=== PATIENT | male | born 1930 | race Caucasian/White ===

== ENCOUNTER 2018-08-06 15:39 | Emergency (ER) | payer MEDICARE, BC ==
[~2018-08-06] VITALS: Ht 182.9 cm; Wt 75.0 kg
[~2018-08-06 15:39] MED LIST: CENTRUM SILVER1 TA2 PO; FISH OIL 1,0001 CA1 PO; NIASPAN500 MG PO; PLAVIX75 MG PO; TOPROL XL25 MG
[2018-08-06 15:48] VITALS: Ht 182.9 cm; Wt 75.0 kg
[2018-08-06 17:03] LABS: BASOPHILS 0.3 % (0-2); EOSINOPHILS 2.2 % (0-7); HEMATOCRIT 39.6 % (42.0-54.0); HEMOGLOBIN 13.5 g/dL (13.5-17.5); IMMATURE GRANULOCYTES 0.3 % (0-5); MCH 32.5 pg (26.0-34.0); MCHC 34.1 g/dL (31.0-37.0); MCV 95.4 fL (80.0-100.0); MEAN PLATELET VOLUME 11.3 fL (7.4-10.4); MONOCYTES 9.4 % (2-11); NEUTROPHILS 65.8 % (40-80); PLATELET COUNT 148 10x3/uL (130-400); RBC 4.15 10x6/uL (4.20-6.10); RDW 12.7 % (11.5-14.5); WBC 8.6 10x3/uL (4.8-10.8)
[2018-08-06 17:22] LABS: ALBUMIN 3.8 g/dL (3.4-5.0); ALKALINE PHOSPHATASE 82 U/L (46-116); ALT (SGPT) 49 U/L (10-68); BILIRUBIN - TOTAL 0.27 mg/dL (0.2-1.3); CALC OSMOLALITY 285 mosm/kg (275-300); CALCIUM 8.9 mg/dL (8.5-10.1); CARBON DIOXIDE 28.5 mmol/L (21.0-32.0); CHLORIDE - SERUM 105 mmol/L (98-107); CREATININE - SERUM 1.4 mg/dL (0.6-1.3); GLUCOSE 161 mg/dL (74-106); POTASSIUM - SERUM 3.8 mmol/L (3.5-5.1); PROTEIN - SERUM 7.6 g/dL (6.4-8.2); SODIUM 141 mmol/L (136-145); UREA NITROGEN 17 mg/dL (7-18); eGFR NON AFRICAN AMERICAN 51 mL/min (90-120)
[2018-08-06 17:32] LABS: CKMB 2.3 U/L (0.0-3.6); CREATINE KINASE 105 UL (21-232)
[2018-08-06 17:34] LABS: TROPONIN-I < 0.017 ng/mL (0.000-0.060)
[2018-08-06] MEDS ORDERED: ROBAXIN500 MG PO (17:42)
[2018-08-06 18:08] VITALS: BP 138/73
== END 2018-08-06 18:09 | disposition home or self-care (01) ==
LOC: D.ER 15:39
PROVIDERS: Family Medicine
DX: S20.219A Contusion of unspecified front wall of thorax, initial encounter (principal); V43.52XA Car driver injured in collision with other type car in traffic accident, initial encounter; Y93.89 Activity, other specified; Y92.410 Unspecified street and highway as the place of occurrence of the external cause; S29.012A Strain of muscle and tendon of back wall of thorax, initial encounter; S61.412A Laceration without foreign body of left hand, initial encounter; E11.9 Type 2 diabetes mellitus without complications; I25.10 Atherosclerotic heart disease of native coronary artery without angina pectoris; R00.1 Bradycardia, unspecified

== ENCOUNTER → 2019-03-24 09:06 | Outpatient (CLI) | payer MEDICARE, BC ==
[2018-08-06 15:48] VITALS: BMI 22.4
[~2019-03-24 09:06] MED LIST changes: +ROBAXIN500 MG PO
--- NOTE | 2019-03-25 10:00 | ST ---
PATIENT:RICCO MORENO MEDICAL RECORD: [id number] SEX: M LOCATION:[facility] [place] ORDER #: ADMISSION DATE: 03/24/19 AGE OF PATIENT: 88 REFERRING PHYSICIAN: INTERPRETING PHYSICIAN: HEIDY JARVIS MD DATE OF SERVICE: 03/24/2019 Nuclear Stress Test INDICATION: Angina and coronary artery disease and hypertension. He was exercised on standard Lexiscan protocol with 32 mCi of sestamibi injected at peak stress, 11 mCi used previously for rest images. FINDINGS: Gated SPECT reveals preserved ejection fraction at 70% with good wall motioning and thickening and brightening throughout all segments. SPECT imaging Cardiolite was used for myocardial perfusion agent. There is reversibility throughout the inferior and apical segments. This includes the basal, mid apical inferior segments as well as the apex itself. The degree of reversibility is mild to moderate. The amount of myocardium involved is mild to moderate. OVERALL IMPRESSION: 1. This is a low to intermediate risk stress test with reversibility throughout the inferior and apical segments. 2. Gated SPECT reveals preserved ejection fraction at 70% in this patient with ongoing symptomatology. The current scan does suggest the presence with significant coronary artery disease. We would maximize medical therapy. If symptomatology continues, we would proceed with coronary angiography. TRANSINT:[id number] Voice Confirmation ID: [id number] DOCUMENT ID: [id number] HEIDY JARVIS MD at 1000 CC: [id number] DICTATION DATE: 03/24/19 1607 GYNECOLOGIST: 03/25/19 0749 [facility] [place] CLI 03/24/19 [place] [id number]
== END | disposition home or self-care (01) ==
LOC: D.HCCARDIO 09:06
PROVIDERS: ATTEND Internal Medicine Interventional Cardiology
DX: I25.10 Atherosclerotic heart disease of native coronary artery without angina pectoris (principal)

== ENCOUNTER 2019-06-05 09:31 | Outpatient (CLI) | payer MEDICARE, BC ==
[~2019-06-05] VITALS: Ht 182.9 cm; Wt 72.3 kg
--- NOTE | ~2019-06-05 | HEMODYNAMI ---
PATIENT:RICCO MORENO MEDICAL RECORD: [id number] : 32 LOCATION:LEO ADMISSION DATE: 06/05/19 Generatedon:06/05/201913:55 Patient name: RICCO MORENO Patient #: [id number] SSN: [id number] : 1930 Date of study: 06/05/2019 Page: Of Hemodynamic Procedure Report Patient Data Patient Demographics Procedure consent was obtained First Name: RICCO Gender: Male Last Name: TIFFANIE : 1930 [facility] Initial: CHARITY Age: 88 year(s) Patient #: [id number] Race: SSN: [id number] Additional ID: [id number] Contact details Address: [address] [place] [address] [place] State: [place] City: [place] Zip code: [address] Past Medical History Allergies: No known allergies Admission Admission Data Admission Date: 06/05/2019 Admission Time: 9:31 Weight (lbs.): 158.73 Weight (kg.): 72 Lab Results Lab Result Date: 06/05/2019 Lab Result Time: 0:00 Biochemistry Name Units Result Min Max BUN mg/dl 12 --(-*--)-- 7 18 Creatinine mg/dl 1.3 --(---*)-- 0.6 1.3 CBC Name Units Result Min Max Hematocrit % 39.3 -*(----)-- 42 54 Hemoglobin g/dl 13.6 --(*---)-- 13.5 17.5 Procedure Procedure Types Cath Procedure Diagnostic Procedure LHC LHC w/Coronaries Sedation Charges Moderate Sedation up to 15 minutes PCI Procedure Coronary Stent Coronary Stent Initial Procedure Description Procedure Date Procedure Date: 06/05/2019 Procedure Start Time: 13:33 Procedure End Time: 13:54 Procedure Staff Name Function Theron Quinones MD Performing Physician Norma Saavedra RT Monitor Chiquita Donahue RT Scrub Andrey Fam RN Nurse Jeanine Mcdonough RN Film Flat Inspectorfrancisco javier Dempsey RT Monitor Procedure Data Cath Procedure Fluoroscopy Diagnostic fluoroscopy Total fluoroscopy Time: 3.2 time: 3.2 min min Diagnostic fluoroscopy Total fluoroscopy dose: 371 dose: 371 mGy mGy Contrast Material Contrast Material Type Amount (ml) Isovue 300 88 Entry Location Entry Primary Successful Side Size Upsize Upsize Entry Closure Succes sful Closure Location (Fr) 1 (Fr) 2 (Fr) Remarks Device Remarks Femoral Right 5 Fr 6 Fr Exoseal artery Short Estimated blood loss: 10 ml Diagnostic catheters Device Type Used For End Catheter Placement MULTIPACK Pigtail 5 Fr Procedure catheter MULTIPACK JL 4.0 5Fr Procedure catheter MULTIPACK 3DRC 5Fr Procedure catheter Procedure Complications No complications Procedure Medications Medication Administration Route Dosage Oxygen etCO2 Nasal cannula 2 l/min Lidocaine 2% added to field 20 Heparin Flush Bag added to field 2 bags (1000units/500ml NS) 0.9% NaCl I.V. 100 ml/hr Radial Cocktail I.A. 1 syringe (Verapamil 2mg/Nitro 400mcg/Heparin 1500units) Versed I.V. 1 mg Fentanyl I.V. 50 mcg Versed I.V. 1 mg Fentanyl I.V. 50 mcg Heparin Bolus I.V. 4000 units Integrilin (Bolus I.V. 6.8 ml 2mg/ml) Plavix P.O. 600 mg Hemodynamics Rest HGB: 13.6 (g/dl) Heart Rate: 60 (bpm) Snapshots Pre Cath Intra NCS Post Cath Vital Signs Time Heart Resp SPO2 etCO2 NIBP (mmHg) Rhythm Pain Sedation Rate (ipm) (%) (mmHg) Status Level (bpm) 13:01:03 61 16 100 34.5 145/72(120) NSR 0 (11) 10(A) , No pain 13:05:25 60 10 100 22.5 145/68(123) NSR 0 (11) 10(A) , No pain 13:09:47 57 14 100 35.9 155/70(124) NSR 0 (11) 10(A) , No pain 13:14:05 56 15 97 0 130/63(105) NSR 0 (11) 10(A) , No pain 13:18:23 60 16 99 0 125/62(104) NSR 0 (11) 10(A) , No pain 13:22:37 60 13 100 15.7 139/68(113) NSR 0 (11) 10(A) , No pain 13:26:57 56 14 100 0 118/60(96) NSR 0 (11) 10(A) , No pain 13:31:11 56 14 100 0 120/58(96) NSR 0 (11) 10(A) , No pain 13:35:23 87 15 100 0 134/65(98) NSR 0 (11) 9(A) , No pain 13:39:43 64 14 99 0 119/57(90) NSR 0 (11) 9(A) , No pain 13:43:59 66 13 100 0 112/55(87) NSR 0 (11) 9(A) , No pain 13:48:13 61 14 100 0 118/52(97) NSR 0 (11) 10(A) , No pain 13:52:27 64 13 100 0 120/60(91) NSR 0 (11) 10(A) , No pain Medications Time Medication Route Dose Verified Delivered Reason Not es Effectiveness by by 12:49:19 Oxygen etCO2 2 l/min Theron Buffie used for Nasal Stacie Fam RN procedure cannula 12:49:26 Lidocaine 2% added 20ml Theron Buffie used for to vial Stacie Fam RN procedure field 12:49:33 Heparin Flush added 2 bags Theron Buffie used for Bag to Stacie Fam RN procedure (1000units/500ml field NS) 12:49:42 0.9% NaCl I.V. 100 Theron Buffie Per physician ml/hr Stacie Fam RN 13:14:13 Radial Cocktail I.A. 1 Theron Crump for (Verapamil syringe Stacie Quinones MD vasodilation 2mg/Nitro 400mcg/Heparin 1500units) 13:30:14 Versed I.V. 1 mg Theron Buffie for sedation Stacie Fam RN 13:30:20 Fentanyl I.V. 50 mcg Theron Buffie for sedation Stacie Fam RN 13:35:42 Versed I.V. 1 mg Theron Buffie for sedation Stacie Fam RN 13:35:49 Fentanyl I.V. 50 mcg Theron Balderas for sedation Stacie Fam RN 13:40:20 Heparin Bolus I.V. 4000 Theron Buffie for katherine ified units Stacie Fam RN anticoagulation with dr quinones 13:41:00 Integrilin I.V. 6.8 ml Theron duggan Was maria fernanda (Bolus 2mg/ml) Stacie Fam RN antiplatelet 3.2 ml therapy of vial 13:48:57 Plavix P.O. 600 mg Theron Fam RN antiplatelet therapy Procedure Log Time Note 12:34:32 Patient Weight : 158.73 lbs 12:38:49 Informed consent obtained and on chart 12:43:42 Jeanine Mcdonough RN sent for patient. Start room use. 12:44:07 Procedure Status Elective Heart Cath (OP). 12:44:11 Time tracking: Regular hours (M-F 7:00 - 5:00) 12:44:22 Plan of Care:Hemodynamics will remain stable., Cardiac rhythm will remain stable., Comfort level will be maintained., Respiratory function will remain adequate., Patient/ family verbilizes understanding of procedure., Procedure tolerated without complication., Recovers from procedure without complications.. 12:44:55 H&P Date Dictated: 06/02/2019 Within 30 days and on chart., H&P Addendum completed by physician on day of procedure. (MUST COMPLETE FOR ALL OUTPATIENTS). 12:45:30 Patient allergic to No known allergies 12:46:55 Lab Result : BUN 12 mg/dl 12:46:55 Lab Result : Creatinine 1.3 mg/dl 12:46:55 Lab Result : Hemoglobin 13.6 g/dl 12:46:55 Lab Result : Hematocrit 39.3 % 12:49:19 Oxygen 2 l/min etCO2 Nasal cannula was administered by Andrey Fam RN; used for procedure; 12:49:26 Lidocaine 2% 20ml vial added to field was administered by Andrey Fam RN; used for procedure; 12:49:33 Heparin Flush Bag (1000units/500ml NS) 2 bags added to field was administered by Andrey Fam RN; used for procedure; 12:49:42 0.9% NaCl 100 ml/hr I.V. was administered by Andrey Fam RN; Per physician; 12:51:49 Patient received from Pre/Post Procedure Room to CCL 1 Alert and oriented. Tansferred to table in Supine position. 12:51:50 Warm blankets applied, and renetta hugger turned on for patient comfort. 12:51:50 Correct patient and procedure confirmed by team. 12:51:51 ECG and BP/O2 sat monitors applied to patient. 12:59:49 Vital chart was started 12:59:53 Baseline sample Acquired. 12:59:59 Full Disclosure recording started 13:00:20 Rhythm: sinus rhythm 13:00:31 Pre-procedure instructions explained to patient. 13:00:32 Pre-op teaching completed and patient verbalized understanding. 13:00:36 Family in waiting room. 13:00:41 Patient NPO since Midnight. 13:01:27 Is the patient allergic to Iodine/contrast media? No. 13:01:38 Is patient on blood thinner?No 13:01:49 Patient diabetic? Yes. 13:01:56 If diabetic: On Metformin? No 13:02:05 Previous problem with sedation/anesthesia? No ? 13:02:16 Snore? No 13:02:20 Sleep apnea? No 13:02:23 Deviated septum? No 13:02:26 Opens mouth fully? Yes 13:02:29 Sticks out tongue? Yes 13:02:55 Airway obstruction? 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 Yes tight 13:03:19 Modified Samuel's test Ulnar < 7 seconds 13:03:41 Patient pain scale 0/10 ?. 13:03:51 IV patent on arrival in left hand with 0.9% NaCl at [facility]. 13:04:13 Lab results completed and on chart. 13:04:25 Right Radial & Right Groin area was prepped with chlora-prep and draped in sterile fashion 13:04:27 Alarms reviewed by R. N. 13:04:28 Sharps counted by scrub and verified by R.N. 13:07:02 Use device set Radial Dx or PCI 13:07:08 ACIST Syringe (29515) opened to sterile field. 13:07:12 Medline Cath Pack ([id number]) opened to sterile field. 13:07:13 Bag Decanter () opened to sterile field. 13:07:17 ACIST Hand Control (94501) opened to sterile field. 13:07:17 ACIST Manifold (60063) opened to sterile field. 13:07:18 Tegaderm 4 x 4 (1626W) opened to sterile field. 13:07:45 MBrace Wrist Support ([id number]) opened to sterile field. 13:07:48 EMERALD Guide Wire (384-649) opened to sterile field. 13:07:50 SHEATH 6FR RAIN (0419450) opened to sterile field. 13:14:13 Radial Cocktail (Verapamil 2mg/Nitro 400mcg/Heparin 1500units) 1 syringe I.A. was administered by Theron Quinones MD; for vasodilation; 13:18:24 Zero performed for pressure channel P1 13:29:32 Physician arrived 13:29:33 --------ALL STOP TIME OUT------ 13:29:34 Final Timeout: patient, procedure, and site verified with staff and physician. All members of the team are in agreement. 13:29:41 Right Radial & Right Groin site verified by team. 13:29:48 Fire Safety Assessment: A--An alcohol-based skin anteseptic being used preoperatively., C--Open oxygen or nitrous oxide is being used., D--An ESU, laser, or fiber-optic light is being used. 13:29:57 Physical assessment completed. ASA score P 3 - A patient with severe systemic disease as per Theron Quinones MD. 13:30:14 Versed 1 mg I.V. was administered by Andrey Fam RN; for sedation; 13:30:20 Fentanyl 50 mcg I.V. 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 13:30:49 Maximum allowable contrast dose (3.7 X eGFR X 0.75)153 ml. 13:30:56 Sedation plan: IV Moderate Sedation Medication:Versed, Fentanyl 13:33:04 Procedure started. 13:33:13 Local anesthetic to right radial artery with Lidocaine 2% by Theron Quinones MD.INITIAL ACCESS ONLY 13:34:07 unable to use radial. procede with rt groin. 13:34:15 Local anesthetic to right femoral artery with Lidocaine 2% by Theron Quinones MD.ADDITIONAL ACCESS 13:34:31 Use device set Multipack Set 13:34:42 DIAGNOSTIC Multipack 5Fr catheter set ([id number]) opened to sterile field. 13:35:12 SHEATH 5FR [place] (JXD186) opened to sterile field. 13:35:33 A 5 Fr sheath was inserted into the Right Femoral artery 13:35:42 Versed 1 mg I.V. was administered by Andrey Fam RN; for sedation; 13:35:49 Fentanyl 50 mcg I.V. was administered by Andrey Fam RN; for sedation; 13:35:52 A MULTIPACK Pigtail 5 Fr catheter was advanced over the wire and used for Procedure. 13:36:00 LV gram done using RAIN 13:36:11 Injector settings: Ml/sec: 10/20, Volume: 20, 13:36:22 EF : 55 % 13:36:25 Catheter removed. 13:36:37 A MULTIPACK JL 4.0 5Fr catheter was advanced over the wire and used for Procedure. 13:36:49 LCA angiography performed. 13:37:38 Catheter removed. 13:37:51 A MULTIPACK 3DRC 5Fr catheter was advanced over the wire and used for Procedure. 13:38:39 RCA angiography performed. 13:38:54 Catheter removed. 13:39:24 CHOICE PT Extra Support 182cm wire ([id number]) opened to sterile field. 13:39:25 INFLATOR Merit BasixCompak (DX1715) opened to sterile field. 13:39:28 SHEATH 6FR [place] (UPL903) opened to sterile field. 13:39:51 Sheath upsized to a 6 Fr Short. 13:40:13 GUIDE 6FR XBLAD 3.5 catheter ([id number]) opened to sterile field. 13:40:20 Heparin Bolus 4000 units I.V. was administered by Andrey Fam RN; for anticoagulation; verified with dr quinones 13:40:46 6 Fr xblad 3.5 guide catheter was inserted over the wire 13:41:00 Integrilin (Bolus 2mg/ml) 6.8 ml I.V. was administered by Andrey Fam RN; for antiplatelet therapy; Wasted 3.2 ml of vial 13:41:43 choice es 182 wire advanced. 13:41:46 Wire advanced across lesion. 13:42:56 Pre PCI Site: [place] Diag1 has 90% stenosis. 13:43:03 Inflate balloon Inflation number: 1 A EUPHORA 2.5 x 10 Balloon ([id number]) was prepped and advanced across the 1st Diag , then inflated to 13 MARIPOSA for 0:00 (min:sec) . 13:43:17 Balloon removed over the wire. 13:45:11 Place stent Inflation Number: 2 A COBRA RX 2.5 X 8 Stent was prepped and advanced across the 1st Diag . The stent was deployed at 13 MARIPOSA for 0:00 (min:sec) . 13:45:12 Post PCI Site: [place] Diag1 has 0% stenosis. 13:45:33 Stent catheter was removed intact over wire. 13:45:36 Wire removed. 13:45:38 Guide catheter removed. 13:46:02 EXOSEAL 6Fr (EX600) opened to sterile field. 13:46:27 Sheath removed intact; hemostasis achieved with Exoseal to the Right Femoral artery. 13:46:32 Procedure ended.(Physican Out) 13:47:25 Fluoroscopy time 03.20 minutes. 13:47:31 Fluoroscopy dose: 371 mGy 13:47:31 Flurop Dose total: 371 13:47:39 Dose Area Product 74331 mGy/cm. 13:47:50 Contrast amount:Isovue 300 88ml. 13:47:59 Maximum allowable dose exceeded? No. 13:48:01 Sharps counted by scrub and verified by R.N. 13:48:13 Post-op/insertion site Right Femoral artery dressed using a 4 x 4 and Tegaderm. 13:48:20 Post right femoral artery:stable 13:48:38 Post-procedure physical assessment completed. ASA score P 3 - A patient with severe systemic disease as per Theron Quinones MD. 13:48:47 Post procedure rhythm: unchanged. 13:48:54 Estimated blood loss: 10 ml 13:48:57 Plavix 600 mg P.O. was administered by Andrey Fam RN; for antiplatelet therapy; 13:48:59 Post procedure instruction explained to patient.Patient verbalizes understanding. 13:49:00 Patient needs reinforcement of post procedure teaching. 13:50:11 Procedure type changed to Cath procedure, Diagnostic procedure, LHC, LHC w/Coronaries, Sedation Charges, Moderate Sedation up to 15 minutes, PCI procedure, Coronary Stent, Coronary Stent Initial 13:52:09 ACT drawn and resulted at 271 seconds. (normal therapeutic range 180-240 seconds). 13:52:24 Procedure and supply charges have been captured, reviewed, submitted and are correct. 13:52:47 Procedure Complication : No complications 13:54:36 Vital chart was stopped 13:54:37 See physician's report for complete and final results. 13:54:40 Report given to Pre/Post Procedure Room. 13:54:45 Patient transfered to Pre/Post Procedure Room with Bed. 13:54:54 Procedure ended. 13:54:54 Full Disclosure recording stopped 13:54:57 End room use (Document Last) Intervention Summary Intervention Notes Time ActionType Lesion and Equipment Action# Pressure Duration Attributes Used 13:43:03 Inflate 1st Diag EUPHORA 1 13 00:00 balloon 2.5 x 10 Balloon ([id number]) 13:45:11 Place stent 1st Diag COBRA RX 2 13 00:00 2.5 X 8 Stent Device Usage Item Name Manufacture Quantity Catalog Number Hospital Part Current Minimal Lot# / Charge Number Stock Stock Serial# Code ACIST Syringe Acist 1 00512 953980 697951 029542 20 (39786) Medical Systems Inc Medline Cath Medline 1 [id number] 841077 11032 468680 5 Pack ([id number]) Bag Decanter Microtek 1 2001S 888600 49248 297159 5 (2002S) Medical Inc. ACIST Hand Acist 1 20886 418737 403842 250451 5 Control Medical (21442) Systems Inc ACIST Manifold Acist 1 22793 679565 047592 273884 5 (50051) Medical Systems Inc Tegaderm 4 x 4 3M 1 1626W 428992 521099 378635 5 (1626W) MBrace Wrist Advanced 1 140-0250-00 093150 25750 404747 5 Support Vascular (290410721) Dynamics EMERALD Guide Cardinal 1 502-455 144381 733504 378197 5 Wire (502-455) Health SHEATH 6FR Cardinal 1 8539739 139987 2500648 481662 5 RAIN (7757925) Health DIAGNOSTIC Cardinal 1 IQ1553 894892 98207 104316 30 Multipack 5Fr Health catheter set (HH0923) SHEATH 5FR Terumo 1 ZDG254 562354 325030 821674 5 [place] (FHO202) MULTIPACK Cardinal 1 909261 5 Pigtail 5 Fr Health catheter MULTIPACK JL Cardinal 1 585792 5 4.0 5Fr Health catheter MULTIPACK 3DRC Cardinal 1 740698 5 5Fr catheter Health CHOICE PT [place] 1 [id number] 339181 541384 944831 5 Extra Support Scientific 182cm wire ([id number]) INFLATOR Merit Merit 1 LG0273 638955 020205 176443 15 [facility] Medical (ID1435) SHEATH 6FR Terumo 1 MJQ465 345147 022965 595951 40 [place] (RGB628) GUIDE 6FR Cardinal 1 90818310 472164 048722 153431 10 XBLAD 3.5 Health catheter (84903319) EUPHORA 2.5 x Medtronic 1 [id number] 221385 299439 039967 5 [id number] 10 Balloon (JPW2515W) COBRA RX 2.5 X Celonova 1 819573 913018176 2839175 2 4 [id number] 8 stent Biosciences () EXOSEAL 6Fr Cardinal 1 EX600 023793 317573 267837 10 (EX600) Health Signature Audit [place] Stage Time Signature Unsigned Intra-Procedure 06/05/2019 Ambreen 1:55:37 PM Ke BARNARD(R) (CV) Signatures Performing Physician : Signature : Theron Quinones MD Date : Time : Monitor : Norma Saavedra Signature : RT Date : Time : Nurse : Andrey Fam RN Signature : Date : Time : Monitor : Ambreen Signature : Ke RT Date : Time : [address] [place] [address]
[2019-06-05] MEDS ORDERED: ASPIRIN81 MG PO (09:54)
[2019-06-05 10:00] VITALS: BP 130/52; Ht 182.9 cm; Wt 72.3 kg
[2019-06-05 10:18] LABS: BASOPHILS 0.4 % (0-2); EOSINOPHILS 2.5 % (0-7); HEMATOCRIT 39.3 % (42.0-54.0); HEMOGLOBIN 13.6 g/dL (13.5-17.5); IMMATURE GRANULOCYTES 0.1 % (0-5); LYMPHOCYTES 38.6 % (15-50); MCH 32.2 pg (26.0-34.0); MCHC 34.6 g/dL (31.0-37.0); MCV 92.9 fL (80.0-100.0); MEAN PLATELET VOLUME 10.6 fL (7.4-10.4); MONOCYTES 12.2 % (2-11); NEUTROPHILS 46.2 % (40-80); PLATELET COUNT 147 10x3/uL (130-400); RBC 4.23 10x6/uL (4.20-6.10); RDW 13.2 % (11.5-14.5); WBC 7.3 10x3/uL (4.8-10.8)
[2019-06-05 10:31] LABS: ANION GAP 9.4 mmol/L (8-16); CALCIUM 9.1 mg/dL (8.5-10.1); CARBON DIOXIDE 31.3 mmol/L (21.0-32.0); CHOL - HDL RATIO 2.3 ratio (2.3-4.9); CREATININE - SERUM 1.3 mg/dL (0.6-1.3); POTASSIUM - SERUM 3.7 mmol/L (3.5-5.1)
[2019-06-05] MEDS ORDERED: PLAVIX75 MG PO (14:03)
--- NOTE | 2019-06-05 14:06 | NUR ---
PT ARRIVED BY STRETCHER. PLACED ON MONITORS. ASSESSMENT COMPLETED. RIGHT GROIN DRESSING C/D/I. NO S/S OF HEMATOMA NOTED. CALL LIGHT WITHIN REACH. SIGNIFICANT OTHER AT BEDSIDE.
--- NOTE | 2019-06-05 14:21 | NUR ---
PT SUPINE. RIGHT GROIN DRESSING C/D/I. NO S/S OF HEMATOMA NOTED. CALL LIGHT WITHIN REACH. FRIEND AT BEDSIDE. VOIDED APPROX 50CC IN URINAL. NO OTHER NEEDS AT THIS TIME.
--- NOTE | 2019-06-05 14:50 | NUR ---
RIGHT GROIN DRESSING C/D/I. NO S/S OF HEMATOMA NOTED. CALL LIGHT WITHIN REACH. ASSESSMENT COMPLETED. VSS.
--- NOTE | 2019-06-05 15:20 | NUR ---
RIGHT GROIN DRESSING C/D/I. NO S/S OF HEMATOMA NOTED. CALL LIGHT WITHIN REACH. VSS. NO NEEDS AT THIS TIME.
--- NOTE | 2019-06-05 15:50 | NUR ---
RIGHT GROIN DRESSING C/D/I. NO S/S OF HEMATOMA NOTED. CALL LIGHT WITHIN REACH. VSS. FRIEND AT BEDSIDE. NO NEEDS AT THIS TIME.
--- NOTE | 2019-06-05 16:30 | NUR ---
HEAD OF BED INC TO 30 DEGREES. TOLERATED WELL. RIGHT GROIN DRESSING C/D/I. NO S/S OF HEMATOMA NOTED. PT SET UP WITH SANDWICH TRAY AND DRINK. DENIES NAUSEA/PAIN AT THIS TIME. CALL LIGHT WITHIN REACH. WILL CONTINUE TO MONITOR.
--- NOTE | 2019-06-05 17:10 | NUR ---
DISCUSSED DISCHARGE INSTRUCTIONS WITH PT AND PT'S FAMILY. THEY VOICED UNDERSTANDING. RIGHT GROIN DRESSING C/D/I. NO S/S OF HEMATOMA NOTED. LEFT ARM PIV D/C'D WITH CATH TIP INTACT. TOLERATED WELL. PT INSTRUCTED TO GET UP AND DRESSED. FAMILY AT BEDSIDE TO ASSIST. CALL LIGHT WITHIN REACH.
--- NOTE | 2019-06-05 17:25 | NUR ---
PT TO RESTROOM. VOIDED WITHOUT DIFFICULTY. PT TAKEN OUT TO VEHICLE BY WHEELCHAIR. NO S/S OF DISTRESS NOTED. ALL BELONGINGS AND PAPERWORK IN HAND.
--- NOTE | 2019-06-10 14:31 | OP ---
PATIENT NAME: RICCO MORENO MEDICAL RECORD: [id number] :31 LOCATION:D.CAT ADMISSION DATE: SURGEON: HEIDY JARVIS MD DATE OF OPERATION: 06/05/2019 DATE OF SERVICE: 06/05/2019 PROCEDURES: 1. PTCA stent LAD diagonal. 2. Left heart catheterization. 3. Selective coronary angiography. 4. Left ventriculogram. INDICATION: Angina and coronary artery disease. PROCEDURE IN DETAIL: After informed consent was obtained and after a detailed description of risks, benefits as well as alternative therapies, the patient elected to proceed with angiogram and angioplasty. The right femoral area was prepped and draped in normal sterile fashion. Right femoral artery was cannulated via modified Seldinger technique with placement of 6-[place] sheath. All catheters exchanged through this sheath. FINDINGS: Left ventriculogram was performed in standard 30-degree RAIN view, reveals good cardiac wall motion, ejection fraction is 60%. SELECTIVE CORONARY ANGIOGRAPHY: 1. Left main showed no significant angiographic disease. 2. Left anterior descending has previously placed stent. Previously placed stent is widely patent. There is a diagonal system that takes off at the previously placed stent with 90% stenosis at the ostium. 3. Left circumflex has mild irregularities, no flow-limiting stenosis. 4. Right coronary has mild irregularities, no flow-limiting stenosis. PTCA STENT OF THE LAD DIAGONAL: The stent used was a 2.5 x 8 mm Cobra. Result was 0% residual stenosis. OVERALL IMPRESSION: Successful percutaneous transluminal coronary angioplasty stent of the left anterior descending diagonal going from 90% initial stenosis to 0% residual. TRANSINT:[id number] Voice Confirmation ID: [id number] DOCUMENT ID: [id number] HEIDY JARVIS MD at 1431 CC: [id number] DICTATION DATE: 06/05/19 1358 GAMBRELER HELPER: 06/05/19 1351 DEP CLI 06/05/19 [place] [id number]
== END 2019-06-05 17:25 | disposition home or self-care (01) ==
LOC: D.CATH 09:31
PROVIDERS: ATTEND Internal Medicine Interventional Cardiology
DX: I25.110 Atherosclerotic heart disease of native coronary artery with unstable angina pectoris (principal); R06.00 Dyspnea, unspecified

== ENCOUNTER → 2019-11-19 09:02 | Outpatient (CLI) | payer MEDICARE, BC ==
[2019-06-05 10:00] VITALS: BMI 21.6
[~2019-11-19 09:02] MED LIST changes: +ASPIRIN81 MG PO
== END | disposition home or self-care (01) ==
LOC: D.HCCARDIO 09:02
PROVIDERS: ATTEND Internal Medicine Interventional Cardiology
DX: I25.10 Atherosclerotic heart disease of native coronary artery without angina pectoris (principal)

== ENCOUNTER 2019-11-20 20:38 | Emergency (ER) | payer MEDICARE, BC ==
[~2019-11-20] VITALS: Ht 182.9 cm; Wt 70.9 kg
[2019-11-20 20:50] VITALS: Ht 182.9 cm; Wt 70.9 kg
[2019-11-20 21:04] LABS: BASOPHILS 0.5 % (0-2); EOSINOPHILS 3.6 % (0-7); HEMATOCRIT 39.8 % (42.0-54.0); HEMOGLOBIN 13.1 g/dL (13.5-17.5); IMMATURE GRANULOCYTES 0.2 % (0-5); LYMPHOCYTES 33.1 % (15-50); MCHC 32.9 g/dL (31.0-37.0); MCV 97.1 fL (80.0-100.0); MEAN PLATELET VOLUME 10.5 fL (7.4-10.4); MONOCYTES 11.9 % (2-11); NEUTROPHILS 50.7 % (40-80); PLATELET COUNT 147 10x3/uL (130-400); RDW 12.9 % (11.5-14.5); WBC 6.1 10x3/uL (4.8-10.8)
[2019-11-20 21:16] LABS: INR 1.08 (0.85-1.17)
[2019-11-20 21:20] LABS: CALC OSMOLALITY 284 mosm/kg (275-300); CALCIUM 8.7 mg/dL (8.5-10.1); CARBON DIOXIDE 31.1 mmol/L (21.0-32.0); CHLORIDE - SERUM 105 mmol/L (98-107); CREATININE - SERUM 1.3 mg/dL (0.6-1.3); GLUCOSE 144 mg/dL (74-106); POTASSIUM - SERUM 3.7 mmol/L (3.5-5.1); SODIUM 141 mmol/L (136-145); UREA NITROGEN 14 mg/dL (7-18); eGFR NON AFRICAN AMERICAN 55 mL/min (90-120)
[2019-11-20 21:36] LABS: ALBUMIN 3.5 g/dL (3.4-5.0); ALKALINE PHOSPHATASE 97 U/L (30-120); ALT (SGPT) 43 U/L (10-68); BILIRUBIN - TOTAL 0.54 mg/dL (0.2-1.3); CKMB 1.9 U/L (0.0-3.6); CREATINE KINASE 81 UL (21-232); MAGNESIUM - SERUM 1.8 mg/dL (1.8-2.4); PROTEIN - SERUM 7.4 g/dL (6.4-8.2); TROPONIN-I 0.016 ng/mL (0.000-0.060)
[2019-11-20 22:40] VITALS: BP 158/69
--- NOTE | 2019-11-23 11:54 | ST ---
PATIENT:RICCO MORENO MEDICAL RECORD: [id number] SEX: M LOCATION:D.ER ORDER #: ADMISSION DATE: 11/20/19 AGE OF PATIENT: 89 REFERRING PHYSICIAN: INTERPRETING PHYSICIAN: HEIDY JARVIS MD DATE OF SERVICE: 11/20/2019 PROCEDURE: Nuclear stress test. INDICATIONS: Angina, coronary artery disease, shortness of breath, hypertension. He was exercised on standard Lexiscan protocol with 33 mCi of sestamibi injected at peak stress, 11 mCi used previously for rest images. FINDINGS: Gated SPECT reveals preserved ejection fraction at 66% with good wall motioning and thickening and brightening throughout all segments. SPECT imaging: Cardiolite was used as myocardial perfusion agent. There is reversibility throughout the inferior and apical segments. This includes the basal, mid, apical, and inferior segments. The degree of reversibility is moderate. The amount of myocardium involved is moderate. OVERALL IMPRESSION: 1. This is an intermediate risk abnormal nuclear stress test with reversibility throughout the inferior and apical segments. 2. Gated SPECT reveals preserved ejection fraction at 66%. In this patient with ongoing symptomatology, the current scan does suggest the presence of hemodynamically significant coronary artery disease. TRANSINT:[id number] Voice Confirmation ID: [id number] DOCUMENT ID: [id number] HEIDY JARVIS MD at 1154 CC: JIGNA BARBA [id number] DICTATION DATE: 11/20/19 1518 SUPERVISOR DRAPERY HANGING: 11/21/19 0640 [facility] ER 11/20/19 [place] [id number] [place] [address]
== END 2019-11-20 22:40 | disposition home or self-care (01) ==
LOC: D.ER 20:38
PROVIDERS: Family Medicine
DX: R07.9 Chest pain, unspecified (principal); I25.10 Atherosclerotic heart disease of native coronary artery without angina pectoris; E11.9 Type 2 diabetes mellitus without complications; I10 Essential (primary) hypertension; Z95.5 Presence of coronary angioplasty implant and graft; N40.0 Benign prostatic hyperplasia without lower urinary tract symptoms

== ENCOUNTER 2019-12-01 08:29 | Outpatient (CLI) | payer MEDICARE, BC ==
[~2019-12-01] VITALS: Ht 182.9 cm; Wt 70.5 kg
--- NOTE | ~2019-12-01 | OP ---
PATIENT NAME: RICCO MORENO MEDICAL RECORD: [id number] :[birth year] LOCATION:D.CAT ADMISSION DATE: SURGEON: HEIDY JARVIS MD DATE OF OPERATION: 12/01/2019 PROCEDURES: 1. PTCA stent LAD diagonal. 2. Percutaneous transluminal coronary angioplasty stent right coronary artery. 3. PTCA, LAD. 4. IFR. 5. Left heart catheterization. 6. Selective coronary angiography. 7. Left ventriculogram. INDICATION: Angina and coronary artery disease. PROCEDURE IN DETAIL: After informed consent was obtained and after a detailed description of the risks, benefits as well as alternative therapies, the patient elected to proceed with angiogram and angioplasty. The right femoral area was prepped and draped in normal sterile fashion. Right femoral artery was cannulated via modified Seldinger technique with placement of 6-Khmer sheath. All catheters exchanged through this sheath. FINDINGS: Left ventriculogram was performed in standard 30-degree RAIN view, reveals good cardiac wall motion throughout all segments. Overall ejection fraction estimated 60%. SELECTIVE CORONARY ANGIOGRAPHY: 1. Left main is with no significant angiographic disease. 2. Left anterior descending has previously placed stent in the LAD. The diagonal was just large as the LAD has 90% stenosis. 3. The left circumflex has moderate irregularities, but no flow-limiting stenosis. 4. Distal right coronary has 80% stenosis and IFR is abnormal. PTCA STENT OF THE DISTAL RCA: The stent used was a 2.5 x 12 mm Integrity. Result was 0% residual stenosis. PTCA STENT OF THE LAD DIAGONAL: The stent used is a 2.5 x 8 mm Integrity. This caused plaque shift in the LAD. We used the stent balloon for the LAD as well and ballooned this. Result was 0% residual. IMPRESSION: Successful percutaneous transluminal coronary angioplasty stent of the RCA and left anterior descending diagonal, both going from 80% to 90% initial stenosis to 0% residual. TRANSINT:[id number] Voice Confirmation ID: [id number] DOCUMENT ID: [id number] OPERATIVE REPORT [id number] RICCO MORENO HEIDY JARVIS MD CC: [id number] DICTATION DATE: 12/01/19 1031 TECH INTERN: 12/01/19 1901 DEP CLI 12/01/19 [facility] [address] [place] [address]
--- NOTE | ~2019-12-01 | HEMODYNAMI ---
PATIENT:RICCO MORENO MEDICAL RECORD: [id number] : 32 LOCATION:DFRANK ADMISSION DATE: 12/01/19 Generatedon:12/01/201910:31 Patient name: RICCO MORENO Patient #: [id number] SSN: [id number] : 1930 Date of study: 12/01/2019 Page: Of Hemodynamic Procedure Report Patient Data Patient Demographics Procedure consent was obtained First Name: RICCO Gender: Male Last Name: TIFFANIE : 1930 [facility] Initial: CHARITY Age: 89 year(s) Patient #: [id number] Race: SSN: [id number] Additional ID: [id number] Contact details [address]: [address] [place] [address] [place] State: [place] City: [place] Zip code: [address] Past Medical History Allergies: No known allergies Admission Admission Data Admission Date: 12/01/2019 Admission Time: 8:29 Arrival Date: 12/01/2019 Arrival Time: 0:00 Admit Source: Other Insurance Payor: Medicare [facility] #: [id number] Height (in.): 71.97 BSA: 1.91 (m2) Height (cm.): 182.8 BMI: 21.07 (kg/m2) Weight (lbs.): 155.21 Weight (kg.): 70.4 Procedure Procedure Types Cath Procedure Diagnostic Procedure [facility] w/Coronaries FFR/IVUS FFR Initial Sedation Charges Moderate Sedation up to 30 minutes PCI Procedure Coronary Stent Coronary Stent Initial x2 Hemochron ACT Test Procedure Description Procedure Date Procedure Date: 12/01/2019 Procedure Start Time: 10:03 Procedure End Time: 10:30 Procedure Staff Name Function Theron Quinones MD Performing Physician Chiquita Donahue RT Monitor Miguelina Prajapati RT Scrub Evelio Chandler RN Nurse Procedure Data Cath Procedure Fluoroscopy Diagnostic fluoroscopy Total fluoroscopy Time: 6.6 time: 6.6 min min Diagnostic fluoroscopy Total fluoroscopy dose: 514 dose: 514 mGy mGy Contrast Material Contrast Material Type Amount (ml) Isovue 370 104 Entry Location Entry Primary Successful Side Size Upsize Upsize Entry Closure Succes sful Closure Location (Fr) 1 (Fr) 2 (Fr) Remarks Device Remarks Femoral Right 5 Fr 6 Fr Exoseal artery Short Estimated blood loss: 10 ml Diagnostic catheters Device Type Used For End Catheter Placement MULTIPACK Pigtail 5 Fr Procedure catheter MULTIPACK JL 4.0 5Fr Procedure catheter MULTIPACK 3DRC 5Fr Procedure catheter Procedure Complications No complications Procedure Medications Medication Administration Route Dosage 0.9% NaCl I.V. 100 ml/hr Oxygen etCO2 Nasal cannula 2 l/min Heparin Flush Bag added to field 2 bags (1000units/500ml NS) Lidocaine 2% added to field 20 Radial Cocktail added to field 1 syringe (Verapamil 2mg/Nitro 400mcg/Heparin 1500units) Versed I.V. 1 mg Fentanyl I.V. 50 mcg Heparin Bolus I.V. 4000 units Integrilin (Bolus I.V. 6.8 ml 2mg/ml) Integrilin (Bolus wasted 3.2 ml 2mg/ml) Plavix P.O. 600 mg Hemodynamics Rest BSA: 1.91 (m2) O2 Consumption: Estimated: 202.25 (ml/min) O2 Consumption indexed : Estimated:105.89 (ml/min/m) Heart Rate: 51 (bpm) Snapshots Pre Cath Intra NCS Post Cath Vital Signs Time Heart Resp SPO2 etCO2 NIBP (mmHg) Rhythm Pain Sedation Rate (ipm) (%) (mmHg) Status Level (bpm) 9:53:48 52 15 100 32.1 149/69(124) NSR 0 (11) 10(A) , No pain 9:57:58 50 15 100 17.9 141/67(121) NSR 0 (11) 10(A) , No pain 10:02:20 52 12 95 22.4 126/54(96) NSR 0 (11) 9(A) , No pain 10:06:34 52 13 97 0 117/56(101) NSR 0 (11) 9(A) , No pain 10:10:46 55 14 97 0 113/54(90) NSR 0 (11) 9(A) , No pain 10:14:53 55 14 100 37.4 112/62(90) NSR 0 (11) 9(A) , No pain 10:19:01 60 14 100 22.4 120/60(94) NSR 0 (11) 9(A) , No pain 10:23:11 55 15 100 24.6 125/61(106) NSR 0 (11) 10(A) , No pain 10:27:23 52 17 100 32.8 142/62(114) NSR 0 (11) 9(A) , No pain Medications Time Medication Route Dose Verified Delivered Reason Not es Effectiveness by by 9:52:53 0.9% NaCl I.V. 100 Evelio Evelio Per physician ml/hr Geraldine Chandler RN RN 9:53:04 Oxygen etCO2 2 l/min Evelio Evelio for low 02 sats Nasal Geraldine Chandler cannula RN RN 9:53:16 Heparin Flush added 2 bags Evelio Evelio used for Bag to Geraldine Chandler procedure (1000units/500ml field RN RN NS) 9:53:25 Lidocaine 2% added 20ml Evelio Evelio for local to vial Geraldine Chandler anesthetic RN RN 9:53:35 Radial Cocktail added 1 Evelio Evelio used for (Verapamil to syringe Geraldine Chandler procedure 2mg/Nitro field RN RN 400mcg/Heparin 1500units) 10:00:33 Versed I.V. 1 mg Evelio Evelio for sedation Geraldine Chandler RN RN 10:00:41 Fentanyl I.V. 50 mcg Evelio Evelio for anxiety Geraldine Chandler RN RN 10:11:20 Heparin Bolus I.V. 4000 Evelio Evelio for units Geraldine Chandler anticoagulation RN RN 10:11:40 Integrilin I.V. 6.8 ml Evelio Evelio for (Bolus 2mg/ml) Geraldine Chandler antiplatelet RN RN therapy 10:11:54 Integrilin wasted 3.2 ml Evelio Evelio to sharp's (Bolus 2mg/ml) Geraldine Chandler RN RN 10:25:17 Plavix P.O. 600 mg Evelio Evelio for Geraldine Chandler antiplatelet RN RN therapy Procedure Log Time Note 9:39:33 Evelio Chandler RN sent for patient. Start room use. 9:43:10 Diagnostic Cath Status : Elective 9:43:28 Admit Source: Other 9:43:31 Procedure Status Elective Heart Cath (OP). 9:43:35 Time tracking: Regular hours (M-F 7:00 - 5:00) 9:43:40 Plan of Care:Hemodynamics will remain stable., Cardiac rhythm will remain stable., Comfort level will be maintained., Respiratory function will remain adequate., Patient/ family verbilizes understanding of procedure., Procedure tolerated without complication., Recovers from procedure without complications.. 9:43:44 Patient received from Pre/Post Procedure Room to CCL 1 Alert and oriented. Tansferred to table in Supine position. 9:43:47 Signed procedure consent form obtained from patient. 9:43:48 Warm blankets applied, and renetta hugger turned on for patient comfort. 9:43:48 Correct patient and procedure confirmed by team. 9:43:49 ECG and BP/O2 sat monitors applied to patient. 9:45:35 H&P Date Dictated: 11/25/2019 Within 30 days and on chart.. 9:45:36 Pre-procedure instructions explained to patient. 9:45:36 Pre-op teaching completed and patient verbalized understanding. 9:45:38 Family in waiting room. 9:45:40 Patient NPO since Midnight. 9:45:50 Patient allergic to No known allergies 9:45:56 Is the patient allergic to Iodine/contrast media? No. 9:45:57 Was the patient premedicated? No 9:46:15 Dentures? Yes in tight 9:46:23 Patient diabetic? Yes. 9:46:25 If diabetic: On Metformin? No 9:46:29 Is patient on blood thinner?No 9:46:34 ----Pre-sedation anethsthesia assessment.---- 9:46:36 Previous problem with sedation/anesthesia? No ? 9:46:37 Snore? Yes 9:46:39 Sleep apnea? No 9:46:40 Deviated septum? No 9:46:41 Opens mouth fully? Yes 9:46:42 Sticks out tongue? Yes 9:46:44 Airway obstruction? No ? 9:46:47 Patient pain scale 0/10 ?. 9:46:57 IV patent on arrival in right antecubital with 0.9% NaCl at O. 9:47:01 Lab results completed and on chart. 9:47:06 Stress Test: no; N/A ? 9:47:08 Alarms reviewed by R. N. 9:47:13 Sharps counted by scrub and verified by RPatriaNPatria 9:48:16 Arrival Date: 12/01/2019 12:00:00 AM 9:48:28 Insurance Payor : Medicare 9:49:04 Patient Height : 71.97 inches 9:49:08 Patient Weight : 155.21 lbs 9:49:32 Pre procedure: right dorsailis pedis pulse 2+ Normal; easily identifiable; not easily obliterated 9:49:34 Modified Samuel's test Ulnar < 7 seconds 9:49:41 Right Radial & Right Groin area was prepped with chlora-prep and draped in sterile fashion 9:49:45 Use device set Radial Dx or PCI 9:49:47 ACIST Syringe (87778) opened to sterile field. 9:49:47 Medline Cath Pack ([id number]) opened to sterile field. 9:49:48 Bag Decanter (2002) opened to sterile field. 9:49:49 ACIST Hand Control (13280) opened to sterile field. 9:49:49 ACIST Manifold (70492) opened to sterile field. 9:49:51 Tegaderm 4 x 4 (1626W) opened to sterile field. 9:49:53 EMERALD Guide Wire (665-902) opened to sterile field. 9:49:56 MBrace Wrist Support ([id number]) opened to sterile field. 9:49:57 SHEATH 6FR RAIN (9623683) opened to sterile field. 9:52:33 Vital chart was started 9:52:53 0.9% NaCl 100 ml/hr I.V. was administered by Evelio Chandler RN; Per physician; Verbal order read back and verified. 9:53:04 Oxygen 2 l/min etCO2 Nasal cannula was administered by Evelio Chandler RN; for low 02 sats; Verbal order read back and verified. 9:53:16 Heparin Flush Bag (1000units/500ml NS) 2 bags added to field was administered by Evelio Chandler RN; used for procedure; Verbal order read back and verified. 9:53:25 Lidocaine 2% 20ml vial added to field was administered by Evelio Chandler RN; for local anesthetic; Verbal order read back and verified. 9:53:35 Radial Cocktail (Verapamil 2mg/Nitro 400mcg/Heparin 1500units) 1 syringe added to field was administered by Evelio Chandler RN; used for procedure; Verbal order read back and verified. 9:57:40 Rhythm: sinus bradycardia 9:57:41 Full Disclosure recording started 9:57:52 Baseline sample Acquired. :57:59 --------ALL STOP TIME OUT------ :57:59 Final Timeout: patient, procedure, and site verified with staff and physician. All members of the team are in agreement. 9:58:05 Right Radial & Right Groin site verified by team. 9:58:09 Fire Safety Assessment: A--An alcohol-based skin anteseptic being used preoperatively., C--Open oxygen or nitrous oxide is being used., D--An ESU, laser, or fiber-optic light is being used. 9:58:13 Physical assessment completed. ASA score P 2 - A patient with mild systemic disease as per Theron Quinones MD. 9:58:19 Sedation plan: IV Moderate Sedation Medication:Versed, Fentanyl 10:00:33 Versed 1 mg I.V. was administered by Evelio Chandler RN; for sedation; Verbal order read back and verified. 10:00:41 Fentanyl 50 mcg I.V. was administered by Evelio Chandler RN; for anxiety; Verbal order read back and verified. 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 10:03:18 Maximum allowable contrast dose (3.7 X eGFR X 0.75)130 ml. 10:03:22 Procedure started. 10:03:27 Local anesthetic to right radial artery with Lidocaine 2% by Theron Quinones MD.INITIAL ACCESS ONLY 10:03:59 UNABLE TO GO RAIDAL GOING GROIN.. 10:04:05 Local anesthetic to right femoral artery with Lidocaine 2% by Theron Quinones MD.ADDITIONAL ACCESS 10:04:57 Use device set Femoral Dx 10:05:32 SHEATH 5FR [place] (ITT709) opened to sterile field. 10:05:33 A 5 Fr sheath was inserted into the Right Femoral artery 10:05:35 DIAGNOSTIC Multipack 5Fr catheter set (BH8581) opened to sterile field. 10:06:22 A MULTIPACK Pigtail 5 Fr catheter was advanced over the wire and used for Procedure. 10:06:27 LV gram done using RAIN 10:06:31 EF : 55 % 10::34 Injector settings: Ml/sec: 5, Volume: 15, 10:06:38 Catheter removed. 10:06:55 A MULTIPACK JL 4.0 5Fr catheter was advanced over the wire and used for Procedure. 10:06:59 LCA angiography performed. 10:07:13 Catheter removed. 10:07:19 A MULTIPACK 3DRC 5Fr catheter was advanced over the wire and used for Procedure. 10:07:23 RCA angiography performed. 10:07:39 Use device set TAU PCI 10:08:14 Catheter removed. 10:08:15 Proceeding to intervention. 10:09:41 GUIDE 6FR AR 2.0 catheter (OG1VQ11) opened to sterile field. 10:09:52 SHEATH 6FR [place] (PSE882) opened to sterile field. 10:10:00 Sheath upsized to a 6 Fr Short. 10:10:08 [place] Verrata Plus pressure wire (44546P) opened to sterile field. 10:10:13 CHOICE PT Extra Support 182cm wire ([id number]) opened to sterile field. 10:10:59 ILIAC VISUALIZED. 10:11:20 Heparin Bolus 4000 units I.V. was administered by Evelio Chandler RN; for anticoagulation; Verbal order read back and verified. 10:11:39 6 Fr AR 2 guide catheter was inserted over the wire 10:11:40 Integrilin (Bolus 2mg/ml) 6.8 ml I.V. was administered by Evelio Chandler RN; for antiplatelet therapy; Verbal order read back and verified. 10:11:44 FFR/IFR wire advanced. 10:11:54 Integrilin (Bolus 2mg/ml) 3.2 ml wasted was administered by Evelio Chandler RN; to sharp's; Verbal order read back and verified. 10:11:54 Wire advanced across lesion. 10:13:26 dRCA lesion measured at .47 with IFR 10:13:52 Pre PCI Site: [place] dRCA has 80% stenosis. 10:14:50 Place stent Inflation Number: 1 A INTEGRITY RX 2.5 x 12 stent ([id number]) was prepped and advanced across the Dist RCA . The stent was deployed at 11 MARIPOSA for 0:00 (min:sec) . 10:15:12 Stent catheter was removed intact over wire. 10:15:13 Wire removed. 10:15:27 PT GRAPHIX 182 wire advanced. 10:15:55 Wire redirected to DIST RCA. 10:16:53 Inflation number: 2 The stent balloon was then re-inflated across the Dist RCA to 7 MARIPOSA for 0:00 (min:sec) . 10:17:15 Stent catheter was removed intact over wire. 10:17:17 Wire removed. 10:17:18 Guide catheter removed. 10:18:18 Pre PCI Site: [place] Diag1 has 90% stenosis. 10:18:34 GUIDE 6FR XBC 3.5 ([id number]) opened to sterile field. 10:18:41 6 Fr XBC 3.5 guide catheter was inserted over the wire 10:19:10 PT GRAPHIX 182 wire advanced. 10:19:14 Wire redirected to DIAG. 10:20:41 Inflation number: 1 The stent balloon was then re-inflated across the 1st Diag1 to 13 MARIPOSA for 0:00 (min:sec) . 10:20:53 Stent catheter was removed intact over wire. 10:21:56 Place stent Inflation Number: 2 A INTEGRITY RX 2.5 x 08 stent ([id number]) was prepped and advanced across the 1st Diag1 . The stent was deployed at 13 MARIPOSA for 0:00 (min:sec) . 10:22:50 Wire redirected to DIST LAD. 10:23:01 Inflation number: 1 The stent balloon was then re-inflated across the Dist LAD to 13 MARIPOSA for 0:00 (min:sec) . 10:23:11 Stent catheter was removed intact over wire. 10:23:13 Wire removed. 10:23:13 Guide catheter removed. 10:23:18 EXOSEAL 6Fr (EX600) opened to sterile field. 10:23:32 Sheath removed intact; hemostasis achieved with Exoseal to the Right Femoral artery. 10:23:35 Procedure ended.(Physican Out) 10:24:10 Fluoroscopy time 06.60 minutes. 10:24:17 Flurop Dose total: 514 10:24:17 Fluoroscopy dose: 514 mGy 10:24:24 Dose Area Product 47135 mGy/cm. 10:24:28 Contrast amount:Isovue 370 104ml. 10:24:32 Maximum allowable dose exceeded? No. 10:24:33 Sharps counted by scrub and verified by R.N. 10:24:37 Post-op/insertion site Right Femoral artery dressed using a 4 x 4 and Tegaderm. 10:24:42 Post right femoral artery:stable, soft, clean and dry 10:24:44 Post Procedure Pulses reassessed and unchanged 10:24:52 Post procedure: right dorsailis pedis pulse 2+ Normal; easily identifiable; not easily obliterated. 10:24:56 Post-procedure physical assessment completed. ASA score P 2 - A patient with mild systemic disease as per Theron Quinones MD. 10:24:59 Post procedure rhythm: unchanged. 10:25:02 Estimated blood loss: 10 ml 10:25:04 Post procedure instruction explained to patient.Patient verbalizes understanding. 10:25:05 Patient needs reinforcement of post procedure teaching. 10:25:17 Plavix 600 mg P.O. was administered by Evelio Chandler RN; for antiplatelet therapy; Verbal order read back and verified. 10:25:40 Procedure type changed to Cath procedure, Diagnostic procedure, [facility], [facility] w/Coronaries, FFR/IVUS, FFR Initial, Sedation Charges, Moderate Sedation up to 30 minutes, PCI procedure, Coronary Stent, Coronary Stent Initial x2, Hemochron ACT Test 10:27:09 ACT drawn and resulted at 294 seconds. (normal therapeutic range 180-240 seconds). 10::59 Use device set Femoral Dx 10:29:53 Procedure and supply charges have been captured, reviewed, submitted and are correct. 10:29:57 Procedure Complication : No complications 10:30:00 Vital chart was stopped 10:30:01 [facility] Findings: MVD- PCI performed (see procedure note) 10:30:02 Operative report dictated upon procedure completion. 10:30:03 See physician's report for complete and final results. 10:30:05 Report given to Pre/Post Procedure Room. 10:30:08 Patient transfered to Pre/Post Procedure Room with Stretcher. 10:30:10 Procedure ended. 10:30:10 Full Disclosure recording stopped 10::17 ACC-PCI Only Patient was given prescriptions, or instructed by Theron Quinones MD to start/continue the following medications upon discharge: Plavix 10:: End room use (Document Last) 10:30:28 End room use (Document Last) 10:30:59 End room use (Document Last) Intervention Summary Intervention Notes Time ActionType Lesion and Equipment Action# Pressure Duration Attributes Used 10:14:50 Place stent Dist RCA INTEGRITY RX 1 11 00:00 2.5 x 12 stent ([id number]) 10:16:53 Reinflate Dist RCA INTEGRITY RX 2 7 00:00 stent 2.5 x 12 balloon stent ([id number]) 10:20:41 Reinflate 1st Diag1 INTEGRITY RX 1 13 00:00 stent 2.5 x 12 balloon stent ([id number]) 10:21:56 Place stent 1st Diag1 INTEGRITY RX 2 13 00:00 2.5 x 08 stent ([id number]) 10:23:01 Reinflate Dist LAD INTEGRITY RX 1 13 00:00 stent 2.5 x 08 balloon stent ([id number]) Device Usage Item Name Manufacture Quantity Catalog Number Hospital Part Current M inimal Lot# / Charge Number Stock Stock Serial# Code ACIST Acist 1 92092 747551 881677 349755 2 0 Syringe Medical (11730) Systems Inc Medline Cath Medline 1 [id number] 117561 20405 173295 5 Pack ([id number]) Bag Decanter Microtek 1 2001S 405974 36896 200269 5 (2001S) Medical Inc. ACIST Hand Acist 1 67285 369854 719853 636719 5 Control Medical (11047) Systems Inc ACIST Acist 1 52479 911684 323751 929863 5 Manifold Medical (86796) Systems Inc Tegaderm 4 x 3M 1 1626W 273711 534555 710954 5 4 (1626W) EMERALD Cardinal 1 502-455 397346 448674 963690 5 Guide Wire Health (024-522) MBrace Wrist Advanced 1 140-0250-00 457861 26839 435412 5 Support Vascular (353245106) Dynamics SHEATH 6FR Cardinal 1 3288262 835156 3298622 957727 5 [facility] Saborstudio (8873168) SHEATH 5FR Terumo 1 CAN084 645990 926719 566697 5 [place] (ZZS875) MULTIPACK Cardinal 1 603593 5 Pigtail 5 Fr Health catheter MULTIPACK JL Cardinal 1 004834 5 4.0 5Fr Health catheter MULTIPACK Cardinal 1 250752 5 3DRC 5Fr Health catheter GUIDE 6FR AR Medtronic 1 [id number] 297808 73745 488843 1 2.0 catheter (JL2QU04) SHEATH 6FR Terumo 1 TVF725 753670 648732 583210 4 0 [place] (KED101) [place] Wyaconda 1 13918P 673246 260576877 350124 5 Verrata Plus pressure wire (49862P) CHOICE PT [place] 1 [id number] 947294 326621 942474 5 Extra Scientific Support 182cm wire (2860146T5) INTEGRITY RX Medtronic 1 [id number] 002382 092789 732847 5 [id number] 2.5 x 12 stent ([id number]) GUIDE 6FR Cardinal 1 [id number] 201658 52608 376266 5 XBC 3.5 Health (06223985) INTEGRITY RX Medtronic 1 [id number] 495606 075739 092417 5 [id number] 2.5 x 08 stent ([id number]) EXOSEAL 6Fr Cardinal 1 EX600 950072 619732 223008 1 0 (EX600) Health DIAGNOSTIC Cardinal 1 [id number] 338240 33057 944456 3 0 Multipack Saborstudio 5Fr catheter set (ZG5014) Signature Audit [place] Stage Time Signature Unsigned Intra-Procedure 12/01/2019 Chiquita Donahue 10:30:28 AM RT(R) Intra-Procedure 12/01/2019 Evelio 10:30:59 AM Geraldine SALAZAR Intra-Procedure 12/01/2019 Theron Quinones 10:31:47 AM [address] [id number] [place] [address]
[2019-12-01] MEDS ORDERED: CO Q-1030 MG PO (09:11)
[2019-12-01 09:29] VITALS: BP 166/65; Ht 182.9 cm; Wt 70.5 kg
[2019-12-01 09:59] LABS: ANION GAP 7.5 mmol/L (8-16); CALCIUM 8.5 mg/dL (8.5-10.1); CARBON DIOXIDE 31.1 mmol/L (21.0-32.0); CHOL - HDL RATIO 2.5 ratio (2.3-4.9); CREATININE - SERUM 1.5 mg/dL (0.6-1.3); LDL-HDL RATIO 1.1 ratio (1.5-3.5); POTASSIUM - SERUM 3.6 mmol/L (3.5-5.1)
--- NOTE | 2019-12-01 10:05 | NUR ---
PT RESTING QUIETLY, VSS. R GROIN SITE C/D/I, PT DENIES PAIN OR NEEDS. ALARMS ON AND C/L IN REACH.
[2019-12-01 10:16] LABS: BASOPHILS 0.7 % (0-2); EOSINOPHILS 3.6 % (0-7); HEMATOCRIT 37.7 % (42.0-54.0); HEMOGLOBIN 12.5 g/dL (13.5-17.5); IMMATURE GRANULOCYTES 0.2 % (0-5); LYMPHOCYTES 34.5 % (15-50); MCHC 33.2 g/dL (31.0-37.0); MCV 96.4 fL (80.0-100.0); MEAN PLATELET VOLUME 11.1 fL (7.4-10.4); MONOCYTES 13.9 % (2-11); NEUTROPHILS 47.1 % (40-80); PLATELET COUNT 147 10x3/uL (130-400); RBC 3.91 10x6/uL (4.20-6.10); RDW 12.9 % (11.5-14.5); WBC 5.5 10x3/uL (4.8-10.8)
--- NOTE | 2019-12-01 10:48 | NUR ---
REC'D TO ROOM 6 VIA STRETCHER FROM MEDICAL RECORDS CUSTODIAN. MONITORS ESTAB. FAMILY AT BS. SEE COLOR BLENDER. ALARMS ON AND C/L IN REACH.
[2019-12-01] MEDS ORDERED: PLAVIX75 MG PO (11:02)
--- NOTE | 2019-12-01 11:05 | NUR ---
PT RESTING QUIETLY, VSS. R GROIN SITE SOFT, NO S/S BLEEDING OR HEMATOMA. C/L IN REACH.
--- NOTE | 2019-12-01 11:35 | NUR ---
R GROIN SITE C/D/I, NO S/S BLEEDING OR HEMATOMA. PULSES PALP. PT DENIES NEEDS.
--- NOTE | 2019-12-01 11:45 | NUR ---
[facility] CALLED IN TO [facility] PER PT REQUEST. R GROIN SITE SOFT. C/D/I, NO S/S BLEEDING OR SWELLING.
--- NOTE | 2019-12-01 12:15 | NUR ---
R GROIN SITE SOFT, NO S/S BLEEDING OR HEMATOMA. VSS. PT DENIES PAIN OR NEEDS. C/L IN REACH.
--- NOTE | 2019-12-01 12:45 | NUR ---
PT RESTING QUIETLY. R GROIN SITE C/D/I. PULSES PALP. VSS.
--- NOTE | 2019-12-01 13:30 | NUR ---
R GROIN SITE SOFT, C/D/I. PT REPOSITIONED UP IN BED, HOB ELEVATED. URINAL EMPTIED OF 500ML CLEAR, YELLOW URINE.
--- NOTE | 2019-12-01 13:40 | NUR ---
SANDWICH TRAY PROVIDED, PT DENIES PAIN OR NEEDS. C/L IN REACH.
--- NOTE | 2019-12-01 13:58 | NUR ---
PT ATE ALL OF SANDWICH, THEN GIVEN JELLO AND PUDDING PER REQUEST. R [facility] SITE C/D/I.
--- NOTE | 2019-12-01 14:20 | NUR ---
R GROIN SITE SOFT, NO S/S BLEEDING. PIV D/C'D INTACT, DSG APPLIED. PT ALLOWED TO GET UP AND GET DRESSED.
--- NOTE | 2019-12-01 14:30 | NUR ---
ALL DISCHARGE INSTRUCTIONS REVIEWED - INCLUDING RESTRICTIONS, MEDS AND FOLLOW-UP. PT D/C'D VIA WC TO PRIVATE VEHICLE WITH ALL BELONGINGS AND PAPER WORK.
== END 2019-12-01 14:30 | disposition home or self-care (01) ==
LOC: D.CATH 08:29
PROVIDERS: ATTEND Internal Medicine Interventional Cardiology
DX: I25.119 Atherosclerotic heart disease of native coronary artery with unspecified angina pectoris (principal); I10 Essential (primary) hypertension; E78.5 Hyperlipidemia, unspecified

== ENCOUNTER → 2019-12-02 13:50 | Outpatient (CLI) | payer MEDICARE, BC ==
[2019-12-01 09:29] VITALS: BMI 21.0
[~2019-12-02 13:50] MED LIST changes: +CO Q-1030 MG PO
== END | disposition home or self-care (01) ==
LOC: D.CT 13:50
PROVIDERS: ATTEND Family Medicine
DX: R91.1 Solitary pulmonary nodule (principal)

== ENCOUNTER → 2020-04-15 10:46 | Outpatient (CLI) | payer MEDICARE, BC ==
[2019-12-01 09:29] VITALS: BMI 21.0
== END | disposition home or self-care (01) ==
LOC: D.US 10:30
PROVIDERS: ATTEND Internal Medicine Cardiovascular Disease
DX: R42 Dizziness and giddiness (principal)

== ENCOUNTER → 2020-06-09 08:24 | Outpatient (CLI) | payer MEDICARE, BC ==
[2019-12-01 09:29] VITALS: BMI 21.0
== END | disposition home or self-care (01) ==
LOC: D.CT 06-06 09:00
PROVIDERS: ATTEND Family Medicine
DX: R91.1 Solitary pulmonary nodule (principal)

== ENCOUNTER → 2020-12-01 08:45 | Outpatient (CLI) | payer MEDICARE, BC ==
[2019-12-01 09:29] VITALS: BMI 21.0
== END | disposition home or self-care (01) ==
LOC: D.CT 08:45
PROVIDERS: ATTEND Family Medicine
DX: R10.9 Unspecified abdominal pain (principal); R31.9 Hematuria, unspecified

== ENCOUNTER 2021-02-02 12:05 | Day surgery (SDC) | payer MEDICARE, BC ==
[~2021-02-02] VITALS: Ht 182.9 cm; Wt 64.0 kg
--- NOTE | ~2021-02-02 | OP ---
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 PROCEDURE: 1. Left subclavian vein dual-lead pacemaker placement. 2. Fluoroscopic interpretation. SURGEON: Jhonatan Dudley MD DESCRIPTION OF PROCEDURE: The patient's left chest was prepped and draped in sterile fashion. A total of 20 mL of 1% lidocaine with epinephrine was infused into the surrounding tissues. A transverse incision was made on the left superior lateral chest and a subcutaneous pouch was made over the pectoral fascia. A needle was used to cannulate the left subclavian vein. The guidewire was advanced with ease. Fluoroscopy was used to note that the wire was in good position in the venous system. A 9-Belgian trocar was placed over the wire and we then advanced the ventricular lead through the trocar. We then removed the trocar and placed a 7-Belgian trocar over the wire. The wire and dilator were removed and the atrial lead was advanced through the trocars. At this point, Dr. Saldivar positioned the leads appropriately in the atrium and ventricle. Once they were noted to be in good position and functioning appropriately, then these were sutured into place with 2-0 Ti-Cron. The leads were affixed to the pacemaker, which was placed into the subcutaneous pouch and sutured to the pectoral fascia with single interrupted 2-0 Ti-Cron. The wound was then irrigated out with antibiotic solution. The subcutaneous tissues were reapproximated with interrupted 3-0 Vicryl and the skin was closed with running subcutaneous 5-0 Monocryl. COMPLICATIONS: None. CONDITION: Stable. ANESTHESIA: Local MAC. BLOOD LOSS: Minimal. TRANSINT:[id number] Voice Confirmation ID: [id number] DOCUMENT ID: [id number] JHONATAN DUDLEY MD CC: [id number] DICTATION DATE: 02/02/21 1403 CAREERS COUNSELLOR: 02/02/21 1512 REG [facility] [address] [place] [address]
--- NOTE | ~2021-02-02 | HEMODYNAMI ---
PATIENT:RICCO MORENO MEDICAL RECORD: [id number] : 32 LOCATION:DFRANK ADMISSION DATE: 02/02/21 Generatedon:114:06 Patient name: RICCO MORENO Patient #: [id number] SSN: [id number] : 1930 Date of study: 02/02/2021 Page: Of Hemodynamic Procedure Report Patient Data Patient Demographics Procedure consent was obtained First Name: RICCO Gender: Male Last Name: TIFFANIE : 1930 [facility] Initial: CHARITY Age: 89 year(s) Patient #: [id number] Race: SSN: [id number] Additional ID: [id number] Contact details Address: [address] [place] [address] [place] State: [place] City: [place] Zip code: [address] Past Medical History Allergies: No known allergies Admission Admission Data Admission Date: 02/02/2021 Admission Time: 12:05 Arrival Date: 02/02/2021 Arrival Time: 0:00 Admit Source: Other Insurance Payor: Medicare [facility] #: [id number] Height (in.): 72 BSA: 1.86 (m2) Height (cm.): 182.88 BMI: 19.67 (kg/m2) Weight (lbs.): 145 Weight (kg.): 65.77 Lab Results Lab Result Date: 02/02/2021 Lab Result Time: 0:00 Biochemistry Name Units Result Min Max BUN mg/dl 14 --(--*-)-- 7 18 Creatinine mg/dl 1.3 --(---*)-- 0.6 1.3 Procedure Procedure Types Cath Procedure Diagnostic Procedure PPM/ICD PPM Dual Implant Sedation Charges Moderate Sedation 40-54 minutes Procedure Description Procedure Date Procedure Date: 02/02/2021 Procedure Start Time: 13:32 Procedure End Time: 14:02 Procedure Staff Name Function Petr Dumont MD Performing Physician Brandin Hill MD Assisting physician Astrid Gallagher RT Monitor Andrey Fam RN Nurse Misael Zabala RN Nurse Chiquita Donahue RT Scrub Procedure Data Cath Procedure Fluoroscopy Diagnostic fluoroscopy Total fluoroscopy Time: 2.1 time: 2.1 min min Diagnostic fluoroscopy Total fluoroscopy dose: dose: 39.54 mGy 39.54 mGy Estimated blood loss: 5 ml Procedure Complications No complications Procedure Medications Medication Administration Route Dosage Ancef (1Gm/50ml NS) I.V.P.B 1 g Ancef Irrigation Topical 1 g (1gm/500ml NS) 0.9% NaCl I.V. 25 ml/hr Lidocaine 1% added to field 40 Oxygen etCO2 Nasal cannula 2 l/min Fentanyl I.V. 25 mcg Versed I.V. 0.5 mg Versed I.V. 0.5 mg Versed I.V. 0.5 mg Fentanyl I.V. 25 mcg Fentanyl I.V. 25 mcg Hemodynamics Rest BSA: 1.86 (m2) O2 Consumption: Estimated: 187.51 (ml/min) O2 Consumption indexed : Estimated:100.81 (ml/min/m) Heart Rate: 38 (bpm) Snapshots Pre Cath Intra NCS Post Cath Vital Signs Time Heart Resp SPO2 NIBP (mmHg) Rhythm Pain Sedation Rate (ipm) (%) Status Level (bpm) 13:13:52 37 16 67 174/82(137) 3 0 (11) 10(A) degree , No Heart pain Block 13:18:16 49 12 99 164/61(143) 3 0 (11) 10(A) degree , No Heart pain Block 13:22:36 56 12 100 147/65(111) 3 0 (11) 10(A) degree , No Heart pain Block 13:26:57 39 10 99 137/49(106) 3 0 (11) 10(A) degree , No Heart pain Block 13:31:13 31 10 96 123/50(101) 3 0 (11) 9(A) degree , No Heart pain Block 13:35:23 40 11 100 129/52(98) 3 0 (11) 9(A) degree , No Heart pain Block 13:40:38 31 11 100 130/55(101) 3 0 (11) 9(A) degree , No Heart pain Block 13:44:50 33 12 100 132/51(98) 3 0 (11) 9(A) degree , No Heart pain Block 13:48:56 54 14 100 123/72(91) 3 0 (11) 9(A) degree , No Heart pain Block 13:53:03 64 10 100 131/57(100) Paced 0 (11) 9(A) , No pain 13:57:05 81 0 100 148/80(109) Paced 0 (11) 9(A) , No pain 14:01:13 88 13 100 152/78(120) Paced 0 (11) 10(A) , No pain Medications Time Medication Route Dose Verified Delivered Reason Notes Effecti veness by by 13:11:16 Ancef I.V.P.B 1 g Christianity Misael used for (1Gm/50ml Octavia Zabala RN procedure NS) 13:11:29 Ancef Topical 1 g Christianity Christianity used for Irrigation Octavia Hill MD procedure (1gm/500ml NS) 13:11:44 0.9% NaCl I.V. 25 Christianity Misael used for ml/hr Octavia Zabala RN procedure 13:12:12 Lidocaine added 40ml Christianity Christianity for local 1% to vial Octavia Hill MD anesthetic field 13:12:27 Oxygen etCO2 2 Christianity Misael used for Nasal l/min Octavia Zabala senior formulation scientist cannula 13:20:00 Fentanyl I.V. 25 Christianity Misael for mcg Octavia Zabala RN sedation 13:20:45 Versed I.V. 0.5 Christianity Misael for mg Octavia Zabala RN sedation 13:24:47 Versed I.V. 0.5 Christianity Misael for mg Octavia Zabala RN sedation 13:24:52 Fentanyl I.V. 25 Christianity Misael for mcg Octavia Zabala RN sedation 13:27:48 Versed I.V. 0.5 Christianity Misael for mg Octavia Zabala RN sedation 13:27:54 Fentanyl I.V. 25 Christianity Misael for mcg Octavia Zabala RN sedation Procedure Log Time Note 12:32:39 Informed consent obtained and on chart 12:32:51 Diagnostic Cath Status : Elective 12:33:27 Arrival Date: 02/02/2021 12:00:00 AM 12:33:28 Admit Source: Other 12:33:48 Insurance Payor : Medicare 12:34:09 Patient Height : 72 inches 12:34:15 Patient Weight : 145 lbs 12:35:55 ACC Patient presents with Unstable Angina CCS Anginal Class 2--Slight limitation of ordinary activity. 12:35:59 Procedure Status PPM/ Gen Change/ Lead Revision/ Temp. 12:36:01 Time tracking: Regular hours (M-F 7:00 - 5:00) 12:36:07 Plan of Care:Hemodynamics will remain stable., Cardiac rhythm will remain stable., Comfort level will be maintained., Respiratory function will remain adequate., Patient/ family verbilizes understanding of procedure., Procedure tolerated without complication., Recovers from procedure without complications.. 12:36:15 H&P Date Dictated: 01/31/2021 Within 30 days and on chart.. 12:36:24 Patient allergic to No known allergies 12:36:33 Stress Test: no; N/A ? 12:55:04 Andrey Fam RN sent for patient. Start room use. 13:06:16 Patient received from Pre/Post Procedure Room to CCL 3 Alert and oriented. Tansferred to table in Supine position. 13:06:18 Warm blankets applied, and renetta hugger turned on for patient comfort. 13:06:19 Correct patient and procedure confirmed by team. 13:06:20 ECG and BP/O2 sat monitors applied to patient. 13:11:16 Ancef (1Gm/50ml NS) 1 g I.V.P.B was administered by Misael Zabala RN; used for procedure; Verbal order read back and verified. 13:11:29 Ancef Irrigation (1gm/500ml NS) 1 g Topical was administered by Brandin Hill MD; used for procedure; Verbal order read back and verified. 13:11:44 0.9% NaCl 25 ml/hr I.V. was administered by Misael Zabala RN; used for procedure; Verbal order read back and verified. 13:12:12 Lidocaine 1% 40ml vial added to field was administered by Brandin Hill MD; for local anesthetic; Verbal order read back and verified. 13:12:27 Oxygen 2 l/min etCO2 Nasal cannula was administered by Misael Zabala RN; used for procedure; Verbal order read back and verified. 13:12:45 Vital chart was started 13:15:22 Baseline sample Acquired. 13:15:44 Rhythm: atrial flutter 13:15:46 Full Disclosure recording started 13:15:47 Pre-procedure instructions explained to patient. 13:15:47 Pre-op teaching completed and patient verbalized understanding. 13:15:53 Family in patients room. 13:15:56 Patient NPO since Midnight. 13:15:57 Is the patient allergic to Iodine/contrast media? No. 13:15:59 Was the patient premedicated? No 13:16:00 Is patient on blood thinner?No 13:16:01 Patient diabetic? No. 13:16:04 Previous problem with sedation/anesthesia? No ? 13:16:06 Snore? Yes 13:16:07 Sleep apnea? No 13:16:08 Deviated septum? No 13:16:09 Opens mouth fully? Yes 13:16:11 Sticks out tongue? Yes 13:16:14 Airway obstruction? No ? 13:16:17 Dentures? No ? 13:16:21 Pre procedure: right dorsailis pedis pulse 2+ Normal; easily identifiable; not easily obliterated 13:16:23 Pre procedure: left dorsailis pedis pulse 2+ Normal; easily identifiable; not easily obliterated 13:16:29 IV patent on arrival in right forearm with 0.9% NaCl at [facility]. 13:18:25 Lab Result : BUN 14 mg/dl 13:18:25 Lab Result : Creatinine 1.3 mg/dl 13:19:33 Left chest area was prepped with chlora-prep and draped in sterile fashion 13:19:34 Alarms reviewed by R. N. 13:19:34 Sharps counted by scrub and verified by R.N. 13:19:35 Physician arrived 13:19:35 --------ALL STOP TIME OUT------ 13:19:36 Final Timeout: patient, procedure, and site verified with staff and physician. All members of the team are in agreement. 13:19:41 Left chest site verified by team. 13:19:45 Fire Safety Assessment: E--There are other possible contributors. 13:19:48 Physical assessment completed. ASA score P 2 - A patient with mild systemic disease as per Petr Dumont MD. 13:19:57 Sedation plan: IV Moderate Sedation Medication:Versed, Fentanyl 13:20:00 Fentanyl 25 mcg I.V. was administered by Misael Vj RN; for sedation; Verbal order read back and verified. 13:20:04 Use device set OCTAVIA PPM 13:20:05 2-0 Ticron Multipack ([id number]) opened to sterile field. 13:20:06 3-0 Vicryl Single Pack [id number] opened to sterile field. 13:20:07 5-0 Monocryl PS2 [id number] opened to sterile field. 13:20:07 Cautery Tip Manager Finance opened to sterile field. 13:20:08 Cautery Pushbutton Pencil opened to sterile field. 13:20:08 Mepilex Dressing ([id number]) opened to sterile field. 13:20:09 Immobilizer Sling Medium opened to sterile field. 13:20:16 Medtronic 4074-52 PPM Lead opened to sterile field. 13:20:45 Versed 0.5 mg I.V. was administered by Misael Zabala RN; for sedation; Verbal order read back and verified. 13:21:13 Medtronic 4574-45 PPM Lead opened to sterile field. 13:22:[address] Generator [id number] opened to sterile field. 13:23:16 Medtronic employment representative Mark Anthony Brennan present for procedure. 13:23:26 Pre sharps counted by scrub and verified by RN: Sutures: 7; Sponges: 5; Stick needles: 2; Skin needles: 2; Blade: 1; Cautery: 1 13:23:28 Grounding pad site Left thigh. 13:23:31 Grounding pad site free from injury. 13:24:47 Versed 0.5 mg I.V. was administered by Misael Zabala RN; for sedation; Verbal order read back and verified. 13:24:52 Fentanyl 25 mcg I.V. was administered by Misael Zabala RN; for sedation; Verbal order read back and verified. 13:27:48 Versed 0.5 mg I.V. was administered by Misael Zabala RN; for sedation; Verbal order read back and verified. 13:27:54 Fentanyl 25 mcg I.V. was administered by Misael Zabala RN; for sedation; Verbal order read back and verified. 13:32:25 Procedure started. 13:32:30 Lidocaine 1% was administered to left subclavicular area by Brandin Hill MD . 13:33:34 Incision made to left subclavicular area. 13:38:45 Generator pocket made/opened. 13:38:51 Left subclavian vein accessed with 7Fr Peel Away Sheath. 13:38:55 Left subclavian vein accessed with 7Fr Peel Away Sheath. 13:39:53 Ventricular lead inserted and advanced. 13:39:55 Atrial lead inserted and advanced. 13:49:02 Ventricular lead positioned. 13:49:16 Atrial lead positioned. 13:50:17 Peel-a-way sheath was split and removed. 13:50:17 Peel-a-way sheath was split and removed. 13:50:25 Ventricular lead attachment was completed with 2-0 ticron. 13:51:19 Atrial lead attachment was completed with 2-0 ticron. 13:53:27 PPM Dual was attached to lead(s) and inserted into pocket. 13:53:36 Generator was sutured in place with 2-0 ticron. 13:54:03 Parameters-- Generator: Mode: DDDR. Lower Rate: 60bpm. Upper Rate: 120bpm. 13:54:19 Parameters--Ventricular P/R Wave: 4.5mV. Current: 0.5mA; Threshold: 0.4V; Impedence: 1173OHMS. 13:54:35 Parameters--Atrial P/R Wave: 3.0mV. Current: 0.5mA; Threshold: 0.6V; Impedence: 657OHMS. 13:54:40 Device pocket was irrigated with Ancef. 13:55:24 Subcutaneous closure was completed with 3-0 vicryl plus. 13:56:53 Skin closure was completed with 5-0 monocryl. 13:59:50 Lt Chest incision was dressed with Mepilex dressing. 14:00:05 Procedure ended.(Physican Out) 14:00:14 Fluoroscopy time 02.10 minutes. 14:00:19 Flurop Dose total: 39.54 14:00:19 Fluoroscopy dose: 39.54 mGy 14:00:28 Dose Area Product 419.45 mGy/cm. 14:00:38 Insertion/operative site no bleeding no hematoma. 14:00:42 Post Procedure Pulses reassessed and unchanged 14:00:47 Post procedure rhythm: unchanged. 14:00:51 Estimated blood loss: 5 ml 14:00:53 Post procedure instruction explained to patient.Patient verbalizes understanding. 14:00:53 Patient needs reinforcement of post procedure teaching. 14:01:05 Procedure and supply charges have been captured, reviewed, submitted and are correct. 14:01:14 Procedure Complication : No complications 14:01:17 Vital chart was stopped 14:02:15 Procedure type changed to Cath procedure, Diagnostic procedure, PPM/ICD, PPM Dual Implant, Sedation Charges, Moderate Sedation 40-54 minutes 14:02:18 Operative report dictated upon procedure completion. 14:02:18 See physician's report for complete and final results. 14:02:20 Report given to Pre/Post Procedure Room. 14:02:22 Patient transfered to Pre/Post Procedure Room with Stretcher. 14:02:23 Procedure ended. 14:02:23 Full Disclosure recording stopped 14:02:27 End room use (Document Last) 14:04:38 End room use (Document Last) 14:05:25 End room use (Document Last) Device Usage Item Name Manufacture Quantity Catalog Hospital Part Current [facility] l Lot# / Serial# Number Charge Number Stock Stock Code 2-0 Ticron Ethicon 5 [id number] 10421 [id number] 5 Multipack ([id number]) 3-0 Vicryl Ethicon 1 [id number] 059719 059078 081535 5 Single Pack [id number] 5-0 Monocryl Ethicon 1 Y495G 597452 265795 762065 5 PS2 Y495G Cautery Tip Microtek 1 [id number] 599316 214377 830946 5 Manager Finance [employer] Cautery Microtek 1 [id number] 234405 32530 804436 5 Pushbutton [employer] Inc[employer] Pencil Mepilex Cardinal 1 935321 994258 222446 809301 5 Dressing Health (822618) Immobilizer Cardinal 1 02-96817 443551 116893 378794 5 Sling Medium Health Medtronic Medtronic 1 4074-52 827499 694968 325788 5 [id number] EXP 4074-52 PPM 07-08-2022 Lead Medtronic Medtronic 1 4574-45 416014 587717 069579 5 [id number] 4574-45 PPM [id number] Lead Medtronic Medtronic 1 [id number] 704978 1270651 085420 [id number] [address] DENAE XT [address] 06-27-2022 Generator [id number] Signature Audit Jena Stage Time Signature Unsigned Intra-Procedure 02/02/2021 Astrid Gallagher 2:04:38 PM RT(R) Intra-Procedure 02/02/2021 Misael Zabala RN 2:05:25 PM Intra-Procedure 02/02/2021 Petr Ulloa 2:06:08 PM Mauricio MEYER [place] [address] [place] [address]
[2021-02-02] MEDS ORDERED: LOPRESSOR25 MG PO (12:31)
[2021-02-02] MEDS ORDERED: NIASPAN500 MG PO (12:32)
[2021-02-02] MEDS ORDERED: LASIX20 MG PO (12:32)
[2021-02-02 12:51] VITALS: BP 167/71; Ht 182.9 cm; Wt 64.0 kg
[2021-02-02 13:03] LABS: HEMATOCRIT 39.2 % (42.0-54.0); HEMOGLOBIN 12.8 g/dL (13.5-17.5); MCH 32.2 pg (26.0-34.0); MCHC 32.7 g/dL (31.0-37.0); MCV 98.7 fL (80.0-100.0); RBC 3.97 10x6/uL (4.20-6.10); WBC 7.6 10x3/uL (4.8-10.8)
[2021-02-02 13:08] LABS: ANION GAP 10.2 mmol/L (8-16); CALCIUM 9.1 mg/dL (8.5-10.1); CARBON DIOXIDE 29.3 mmol/L (21.0-32.0); CREATININE - SERUM 1.3 mg/dL (0.6-1.3); POTASSIUM - SERUM 3.5 mmol/L (3.5-5.1)
[2021-02-02 13:31] LABS: APTT 25.5 SECONDS (22.8-39.4); INR 1.19 (0.85-1.17)
--- NOTE | 2021-02-02 14:15 | NUR ---
ARRIVES TO ROOM VIA STRETCHER FROM TRACK SERVICE WORKER S/P PPM. PLACED ON MONITORS ALARMS ON. SEE HOME ENERGY INSPECTOR. LEFT ARM IN SLING. PLACED ON MONITORS ALARMS ON , PT DENIES PAIN OR NEEDS, CALL LIGHT WITHIN REACH
--- NOTE | 2021-02-02 14:30 | NUR ---
RESTING QUIETLY VSS, PACED PER MONITOR, SATS 97% RA, LEFT ARM SLING, LEFT CHEST DRESSING C/D/I
--- NOTE | 2021-02-02 14:45 | NUR ---
PT SEMI FOWLERS POSITON , DENIES PAIN OR NEEDS, VSS, PACED PER MONITORS, LEFT SLING ON AND MEPILEX DRESSING C/D/I. IV INFUSING PER ORDERS, CALL LIGHT WITHIN REACH
--- NOTE | 2021-02-02 15:17 | NUR ---
CXR RESULTED SHOWING NO IMPRESSION OF PNEUMOTHORAX PER RADIOLOGIST
--- NOTE | 2021-02-02 15:30 | NUR ---
DISCHARGE TEACHING COMPLETED , PT AND HIS SIGNIFICANT OTHER VERBALIZED UNDERSTANDING , QUESTIONS AND CONCERNS ADDRESSED, CXR HAS RESULTED SEE PREVIOUS NOTE, PT GIVEN SANDWICH AND WATER. LEFT CHEST DRESSING C/D/I. LEFT SLING REMAINS IN PLACE. VSS, PACED PER MONITOR HR 63 , RA SATS 96%, CALL LIGHT WITH IN REACH
--- NOTE | 2021-02-02 15:40 | NUR ---
ASSISTED PT WITH DRESSING AND EDUCATED SIGNIFICANT OTHER HOW TO ASSIST PT WITH THIS, ALSO HOW TO SERGIO AND DOFF LEFT ARM SLING. PT AMBULATES TO BATHROOM AND VOIDS WITHOUT DIFFICULTY.
--- NOTE | 2021-02-02 15:45 | NUR ---
PT DISCHARGED ORDERED , REITERATED DISCHARGE INSTRUCTIONS WITH PT AND HIS SIGNIFICANT OTHER ALSO EDUCATED PT DTR WHO PICKED PT UP ALL VERBALIZED UNDERSTANDING. PT HAS NO QUESTIONS OR CONCERNS AT THIS TIME, TAKEN TO CAR VIA WHEELCHAIR
--- NOTE | 2021-02-06 08:00 | EC ---
PATIENT:RICCO MORENO DATE OF SERVICE: 02/02/21 SEX: M MEDICAL RECORD: [id number] DATE OF : [birth year] LOCATION:D.CAT AGE OF PATIENT: 89 ADMISSION DATE: 02/02/21 REFERRING PHYSICIAN: INTERPRETING PHYSICIAN: JUANITO BOYD MD ECHOCARDIOGRAM REPORT ECHO CHARGES 4 ECHO COMPLETE Date: 02/02/21 CLINICAL DIAGNOSIS: CHEST PAIN, BRADYCARDIA, ASSESS EF AND VALVES PRE-PACEMAKER. ECHOCARDIOGRAPHIC MEASUREMENTS (adult normal given) AC root (d.<3.7cm) 3.3 cm LV Septum d (<1.2 cm> 1.0 cm Valve Excursion 1.3 cm LV Septum (systole) 1.3 cm Left Atria (s.<4.0cm> 3.0 cm LVPW d(<1.2cm) 1.2 cm RV (d.<2.3cm) 4.3 cm LVPW (sytole) 1.4 cm LV diastole(<5.6CM) 4.7 cm MV E-F(>70mm/sec) cm LV systole 3.2 cm LVOT Diameter 1.7 cm MV exc.(>10mm) 0.80 cm Est.ejection fraction (50-75%) % DOPPLER: LVIT cm/sec A 186.0cm/sec E 189.0 cm/sec LA cm/sec RVSP 44 mmHg LVOT 109 cm/sec AOP1/2T m/s Asc. Ao 187 cm/sec RVOT 62 cm/sec RA cm/sec PA 113 cm/sec AV Gradient Peak 14.02mmHg AV Mean 6.10 mmHg AV Area 1.5 cm MV Gradient Peak 17.24mmHg MV Mean 6.68 mmHg MV Area cm COMMENTS: Senior Business Consultant: 2 BETTY MCKENZIE Head Banquet Waitress: 3 Dr. Saldivar TAPE# pacs Pericardial Effusion N DATE OF SERVICE: Adequate 2D, color-flow imaging, spectral Doppler, and M-Mode FINDINGS: No LVH. LV internal dimension is normal. Wall motion is normal. EF is greater than or equal to 55%. Aortic valve is sclerotic. No evidence of stenosis by Doppler interrogation. Left atrium is normal at 3.0 cm. Mitral valve shows no prolapse. Mild MR. Right side is grossly normal. Mild TR. ECHOCARDIOGRAM REPORT [id number] RICCO MORENO TRANSINT:[id number] Voice Confirmation ID: [id number] DOCUMENT ID: [id number] JUANITO BOYD MD at 0800 CC: [id number] DICTATION DATE: 02/03/21 1144 RESIDENTIAL APPRAISER: 02/03/21 1554 [facility] 02/02/21 [place] [id number] [place] [id number]
--- NOTE | 2021-02-06 08:00 | OP ---
PATIENT NAME: VALENTÍN MORENO MEDICAL RECORD: [id number] :32 LOCATION:D.CAT ADMISSION DATE: SURGEON: JUANITO BOYD MD DATE OF OPERATION: 02/02/2021 PROCEDURE: Lead portion of permanent pacemaker placement. 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 SURGEON: Brandin Hill MD DESCRIPTION OF PROCEDURE: After left subclavian vein was cannulated via modified Seldinger technique via Dr. Hill first under fluoroscopic guidance, I placed the RV lead in the RV apex without difficulty. After adequate R waves and threshold were obtained, the right atrial lead was placed in right atrial appendage without difficulty. After adequate P waves and threshold was obtained, the leads were then attached to the appropriate poles of the generator and the pocket was closed by Dr. Hill. IMPRESSION: Successful lead portion of permanent pacemaker placement for Valentín Moreno. ESTIMATED BLOOD LOSS: Minimal. COMPLICATIONS: None. DISPOSITION: To the floor, stable. TRANSINT:[id number] Voice Confirmation ID: [id number] DOCUMENT ID: [id number] JUANITO BOYD MD at 0800 CC: [id number] DICTATION DATE: 02/02/21 1400 BIOMEDICAL ENGINEERING AIDE: 02/02/21 1454 [facility] 02/02/21 [place] [id number] [place] [address]
== END 2021-02-02 15:45 | disposition home or self-care (01) ==
LOC: D.CATH 12:05
PROVIDERS: ATTEND Internal Medicine Interventional Cardiology
DX: I49.5 Sick sinus syndrome (principal); I44.2 Atrioventricular block, complete; I10 Essential (primary) hypertension; E78.5 Hyperlipidemia, unspecified; E11.9 Type 2 diabetes mellitus without complications; R53.83 Other fatigue